=== PATIENT | female | born 1960 | race Caucasian/White ===

== ENCOUNTER → 2025-09-13 09:19 | Outpatient (REF) | payer BC, SELFPAY ==
--- NOTE | 2025-08-31 09:52 | PN.DIAED02 ---
Referral
DSME Class Series Code: [id number]
Referred For: Diabetes Self-Management Training, Medical Nutrition Therapy, Self-Blood Glucose Monitoring, Long-Term Complication Instruction, Accute Complication Instruction, Continuous Glucose Monitoring, Medication management, Insulin
Instruction, Care Coordination, Disease Management
PHI Release Authorization Form Signed: Yes
Demographic
(1) Type 2 diabetes mellitus without complications
Status: Chronic
Qualifiers:
Diabetes mellitus care home insulin use: with intermediate project manager use Qualified Code(s): E11.9 - Type 2 diabetes mellitus without complications; Z79.4 - termite control representative (current) use of insulin
Code(s): E11.9 - Type 2 diabetes mellitus without complications
Patient's primary language-: Turkmen
Education: College degree
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
Hours Worked/Week: < 20
- Social
Primary Support Person: Self
Primary Care Takers: Self
Living Arrangements: Self, Family (lives with cousin)
- Learning Methods
Preferred Method: Lecture/audio, Hands-on demonstration
Glycemic Control
- Blood Glucose Monitoring Assessment
Blood glucose monitoring at home: Yes
Monitor Brands: Other (Omnipod with Dexcom G7, InPen)
Frequency: >4x per day
Time: fasting, before breakfast, after breakfast, before lunch, after lunch, before dinner, after dinner, bedtime, 12 AM, 3 AM
- Blood Glucose Monitoring Results
Source: Other (CGM report: TIR 54%, High 38%, very high 7% and < 1% very low)
- Hemoglobin A1c
Date: 08/09/25
A1C Percentage (%): 7.6
Medical History of Diabetes
Previous Diabetes Education: Yes
How long ago?: 1-5 years ago
Previous visit with Dietitian: Yes
Complications/Comorbidity/Specialist: Hypertension (Amlodipine Besylate 10 mg QD, Carvedilol 6.25 mg BID, Valsartan 80 mg QD), Metabolic (T2D: Humalog 10 u with meals, Lantus 18 units QD, Metformin 1000 mg 2 tablets AM 1 PM), Other / symptoms
(Hypothyroid: Liothyronine Sodium 5 mcg /week; Synthroid 125 mcg QD)
Current Home Medication
- Insulin Management
Patient adjusts own insulin dosages: No
Patient has access to glucagon: No
- Insulin Types
Humalog Lantus
Insulin Injection Site: Abdomen
Administration Type: Other (Humalog KwikPen and Lantus Solostar pens, also used InPen in past)
Measures
- Anthropometrics
Height: 5 ft 2 in
Actual Weight: 176 lb
- Blood Pressure / Pulse
Blood pressure: 130/80
Pulse: 81
- Diabetes Management
Medical Management for Diabetes: Dental exam (07/31/2025), Dilated eye exam (06/2025), Foot exam (01/2025)
Self-Care
- Tobacco Usage
Do you now, or have you ever smoked?: Never smoked
- Meals & Dining
Meals & Dining: Patient skips meals: Yes, Food Intolerance / Allergy: No, Cultural / Lutheran Dietary Needs: Yes (no red meat, pork, or chicken)
Primary Food Manager Title: Self
Primary Glass Or Mirror Inspector: Self
Dining Out Frequency: 1-3x per week
- Physical Activity
Physical Limitation: Yes
Patient participates in physical Activity: Yes
Frequency: 6-7x per week
- Patient-Self Assessment
Diabetes Knowledge: Poor
Feelings About Diabetes: Denial, Fear, Guilt, Sadness / Depression
General Health: Fair
Importance of Health: Extremely
Stress Level: Medium
Diabetes Interferes With:: Travel
Barriers to Diabetes Management: Depression/emotions (feels like everyone judges her for having T2D 2/2 obesity)
Depression Survey Score: 5
- Diabetes Identification
Carries Diabetes Identification: No
Diabetes Identification Information Provided: Yes
Care Plan
- Education Needs
Patient Education Needs: Diabetes disease process, Chronic complications, Acute complications, Medication, Monitoring, Physical activity, Psychosocial Adjustment, Nutritional management, Goal setting & problem solving
Recommended Diabetes Training Program based on assessment: Outpatient Diabetes Education Program
- Plan of Care
Plan of Care:
08/25/2025 DSME INITIAL CONSULTATION
Met with participant today for registration and initiation of Diabetes Self-management. Pt was recommended by her Job Spotter Naina Ferrell at [facility] due to HbA1c of 7.6% on 08/25/2025. She is retired but works registered nurse post partum at
a hardware store. She started tearing up, stating she feels as if everyone is looking at her blaming her to having T2D 2/2 obesity. She inquired about seeing a therapist, I encouraged her to do so and expressed that she may feel better during and
after class as we can provided education to help her manage himanshu DM.
She wears the Omnipod, complains that it breaks often and she cannot obtain at local retail pharmacies. Directed her to discuss with Endocrinology and to contact local DME companies. She now uses Humalog KwikPen and Lantus Solostar, has used InPen
in the past but the pen broke. Connected her with [facility] to discuss replacement pen.
She states she also has NAFLD/MASH, will not take GLP1RA due to GI side effects. Previously was prescribed Januvia and Jardiance but no longer takes. Additional supplements are Vitamin B12 100 mcg QD, Vitamin D 50 mcg QD, also takes Famotidine 20
mg QD.
We reviewed complications of diabetes, fasting and 2 hour post prandial glucose goals, signs and symptoms of hyperglycemia, signs and symptoms of hypoglycemia, and hypoglycemia protocol. We discussed exercise recommendations of at least 30 minutes
per day to help lower glucose levels. She states she never sits down, is very active and works out 6 days a week riding bike.
I reviewed and provided diabetes management booklet, insurance billing code and advised she contact her health plan to discuss coverage and cost.
She has phone # for office if additional needs arise prior to class.
--- NOTE | 2025-08-31 10:34 | PN.DIAED04 ---
Education Record
- Education Record
Class Attended: Other (DSME INITIAL CONSULTATION 08/25/2025)
DSME Class Series Code: [id number]
Instructor: Nurse Practitioner (NICK Malave)
Pre-Program Knowledge: Needs review / Assistance
Pre-Test Score (%): 63
Goals
- Goal 1
Being Active: Exercise 30 minutes-5 times per week
Goals To Be Evaluated: Exercise 30 mins-5x/week
- Goal 2
Healthy Eating: Make better food choices
Goals To Be Evaluated: Make better food choices
- Goal 3
Monitoring: Follow monitoring schedule (fasting AM and 2 hours postprandial)
Goals To Be Evaluated: Follow monitoring times
--- NOTE | 2025-09-14 12:13 | PN.DIAED04 ---
Education Record
- Education Record
Class Attended: Class 1
DSME Class Series Code: [id number]
Instructor: Registered Nurse (Makayla Esteban RN)
Class Curriculum:
Outpatient Diabetes Education Program:
Class 1 (120 minutes)
Describe the diabetes disease process and treatment options
Diabetes management
Develop personal strategies to promote health and behavior change
Integrate psychosocial adjustment for daily living
Monitor blood glucose and other parameters. Interpret and use the results for self-management decision making
Prevent, detect, and treat acute complications
Class Length (mins): 120
Post-Class 1 Test Score (%): 100
--- NOTE | 2025-09-14 12:13 | PN.DIAED14 ---
This is to notify you that your patient with diabetes, JESSY SAUCEDO ( 1960), has enrolled in our diabetes self-management classes that are being held at [facility].
These classes will include an introduction to diabetes, diet, medication, exercise and prevention of complications. At the end of our class series, you will receive a report of your patient's participation and progress for your records.
Please contact me at the Diabetes Center, , if there is any particular information regarding your patient that might be helpful to me.
Sincerely,
Santos ROMERO-KARTHIK, [facility]
--- NOTE | 2025-09-16 17:58 | PN.DIAED06 ---
Meal Plans - Regular
- Meal Plan
Diabetic Meal Plan Name: 1400 calories
Breakfast - Total Carbohydrate (grams): 30
Breakfast - Starch Carbohydrate: 0
Breakfast - Fruit Carbohydrate: 0
Breakfast - Milk Carbohydrate: 0
Breakfast - Nonstarchy Vegetables: Yes
Breakfast - Meat/Protein: 1
Breakfast - Fat: 2
Morning Snack - Total Carbohydrate (grams): 15
Morning Snack - Starch Carbohydrate: 0
Morning Snack - Fruit Carbohydrate: 0
Morning Snack - Milk Carbohydrate: 0
Morning Snack - Nonstarchy Vegetables: Yes
Morning Snack - Meat/Protein: 0.5
Morning Snack - Fat: 0
Lunch - Total Carbohydrate (grams): 30
Lunch - Starch Carbohydrate: 0
Lunch - Fruit Carbohydrate: 0
Lunch - Milk Carbohydrate: 0
Lunch - Nonstarchy Vegetables: Yes
Lunch - Meat/Protein: 2
Lunch - Fat: 1
Afternoon Snack - Total Carbohydrate (grams): 15
Afternoon Snack - Starch Carbohydrate: 0
Afternoon Snack - Fruit Carbohydrate: 0
Afternoon Snack - Milk Carbohydrate: 0
Afternoon Snack - Nonstarchy Vegetables: Yes
Afternoon Snack - Meat/Protein: 0.5
Afternoon Snack - Fat: 0
Dinner - Total Carbohydrate (grams): 30
Dinner - Starch Carbohydrate: 0
Dinner - Fruit Carbohydrate: 0
Dinner - Milk Carbohydrate: 0
Dinner - Nonstarchy Vegetables: Yes
Dinner - Meat/Protein: 2
Dinner - Fat: 1
Evening Snack - Total Carbohydrate (grams): 15
Evening Snack - Starch Carbohydrate: 0
Evening Snack - Fruit Carbohydrate: 0
Evening Snack - Milk Carbohydrate: 0
Evening Snack - Nonstarchy Vegetables: Yes
Evening Snack - Meat/Protein: 0
Evening Snack - Fat: 0
== END ==
LOC: DES 09:19
PROVIDERS: ATTENDING PHYSICIAN Nurse Practitioner Family
DX: E11.9 Type 2 diabetes mellitus without complications (principal)
CPT/HCPCS: 99078

== ENCOUNTER → 2025-09-20 08:27 | Outpatient (REF) | payer BC, SELFPAY ==
--- NOTE | 2025-09-21 09:17 | PN.DIAED04 ---
Education Record
- Education Record
Class Attended: Class 2
DSME Class Series Code: [id number]
Instructor: Registered Dietitian (Bhakti Saldivar, RD, LDN, CDE)
Class Curriculum:
Outpatient Diabetes Education Program:
Class 2 (120 minutes)
Incorporate nutritional management into lifestyle
Understanding nutritional value
Understanding carbohydrate counting
Class Length (mins): 120
== END ==
LOC: DES 08:27
PROVIDERS: ATTENDING PHYSICIAN Nurse Practitioner Family
DX: E11.9 Type 2 diabetes mellitus without complications (principal)
CPT/HCPCS: 99078